=== PATIENT | female | born 1995 | race Two or more races ===

== ENCOUNTER 2024-07-12 06:04 | Emergency (ER) | payer MEDICAID, SELFPAY ==
[2024-07-12 06:05] VITALS: BP 126/87; PULSE 110; RESP 20; TEMP 36.9; O2SAT 98
--- NOTE | 2024-07-12 06:26 | XR_ITS ---
Examination: CT abdomen and pelvis without contrast. Coronal 3-D reconstructions. Sagittal 2-D reconstructions. Date and time of exam:July 12, 2024 0805 hours INDICATIONS: Onset bilateral flank pain today COMPARISON: 05/05/2023 CTDI: vol (mGy): 10.2 DLP: (mGycm): 553 Technique: Axial images of the abdomen have been obtained, 3 mm slice thickness Intravenous contrast material has not been administered. Low dose protocols were performed. One or more of the following dose reduction techniques were used; automated exposure control, adjustment of the mA and/or KV according to patient size, use of iterative reconstruction technique. Findings: Diffuse fatty infiltration throughout the liver no focal liver lesions Absent gallbladder No pancreatic mass No renal or ureteral calculi, no hydronephrosis Aorta normal size No bowel obstruction Normal appendix No diverticulitis Partially retroverted uterus No definite adnexal mass Contracted urinary bladder with wall thickening up to 4 mm IMPRESSION: No renal or ureteral calculi, no hydronephrosis Normal appendix Cystitis pattern
[2024-07-12 06:41] LABS: Collection Type, Urine Clean Catch
[2024-07-12 06:44] LABS: Basophils % (Auto) 0 % (0-2.5); Eosinophils # (Auto) 0.1 Thou/mm3 (0.0-0.5); Eosinophils % (Auto) 1 % (0-10); Hematocrit 41.9 % (36.0-46.0); Hemoglobin 14.2 g/dL (12.0-16.0); Immature Granulocytes % (Auto) 0 % (0-0); Immature Granulocytes Auto 0.02 Thou/mm3 (0.00-0.00); Lymphocytes # (Auto) 1.6 Thou/mm3 (1.0-4.8); Lymphocytes % (Auto) 16 % (10-50); Mean Corpuscular HGB Conc 33.9 g/dl (31.0-37.0); Mean Corpuscular Hemoglobin 29.3 pg (25.0-35.0); Mean Corpuscular Volume 86 fL (80-100); Monocytes # (Auto) 0.7 Thou/mm3 (0.0-0.8); Monocytes % (Auto) 8 % (0-12); Neutrophils # (Auto) 7.5 Thou/mm3 (1.8-7.7); Neutrophils % (Auto) 76 % (37-80); Nucleated Red Blood Cell % 0 /100 WBC (0); Platelet Count 241 Thou/mm3 (140-440); RDW Standard Deviation 40.5 fL (36.4-46.3); Red Blood Count 4.85 Miln/mm3 (4.00-5.20); White Blood Count 9.9 Thou/mm3 (3.6-11.0)
[2024-07-12 06:48] LABS: Bilirubin,Urine Negative (Negative); Blood,Urine 2+ (Negative); Clarity,Urine Clear (Clear/Hazy); Color,Urine Yellow (Lt Yel-Yel); Culture Indicated,Urine Not Indicated; Glucose, Urine Negative (Negative); Ketones,Urine Negative (Negative); Leukocyte Esterase,Urine Positive (Negative); Nitrite,Urine Negative (Negative); PH,Urine 6.5 (5.0-7.0); Protein,Urine Trace (Neg - Trace); RBC,Urine 5 /hpf (0-3); Specific Gravity,Urine 1.025 (1.001-1.035); Squamous Epithelial Cell,Urine 6 /hpf (0-5); Urobilinogen,Urine Negative mg/dL (0.0-1.0); WBC,Urine 5 /hpf (0-5)
[2024-07-12 06:54] LABS: HCG Qualitative,Urine Negative
[2024-07-12 07:01] LABS: Alanine Aminotransferase 37 U/L (10-49); Albumin, Serum 5.5 gm/dL (3.5-5.0); Albumin/Globulin Ratio 1.8 (1.2-2.2); Alkaline Phosphatase 92 U/L (46-116); Anion Gap 9 (7-16); Aspartate Amino Transferase 25 U/L (0-34); BUN/Creatinine Ratio 13 Ratio (12-20); Bilirubin,Total 0.9 mg/dL (0.3-1.2); Blood Urea Nitrogen 9 mg/dL (9-23); Carbon Dioxide 23.8 mMol/L (20.0-31.0); Chloride 103 mMol/L (98-107); Creatinine (Component) 0.7 mg/dL (0.6-1.3); Glucose 94 mg/dL (74-106); Lipase 28 U/L (12-53); Osmolality,Calculated 270 (275-295); Sodium 136 mMol/L (136-145); Total Protein 8.5 gm/dL (5.7-8.2); eGFR > 60 See Note
--- NOTE | 2024-07-12 11:05 | PD.EDABDPN ---
ED Abdominal Pain RME/HPI General Chief Complaint: Abdominal Pain Stated complaint: Abdominal Painx 4 days Time seen by provider: 07/12/24 06:21 Arrival date/time: 07/12/24 06:04 28 female presents to the emergency department today complaints of left lower abdominal pain and rectal pain patient report symptoms ongoing for the last 4 days patient reports no fever or vomiting Limitations: no limitations Related Data Previous Rx's ?Medication ?Instructions ?Recorded ibuprofen 600 mg tablet 600 mg PO Q6H #30 tabs 07/12/24 metoclopramide HCl 10 mg tablet 10 mg PO Q6H PRN nausea and 07/12/24 (Reglan) vomiting #30 tabs Allergies Allergy/AdvReac Type Severity Reaction Status Date / Time morphine Allergy Mild Rash Verified 05/05/23 19:04 Review of Systems Review of Systems Systems Reviewed: All systems reviewed, normal except as documented Constitutional Constitutional: Reports system reviewed and no additional complaints, except as documented, Denies fever(s) and Denies headache(s) Eyes Eyes: Reports system reviewed and no additional complaints, except as documented and Denies blurry vision ENT Ears, Nose, Mouth, and Throat: Reports system reviewed and no additional complaints, except as documented, Denies headache(s), Denies nasal congestion and Denies nasal discharge Cardiovascular Cardiovascular: Reports system reviewed and no additional complaints, except as documented, Denies chest pain and Denies dyspnea Respiratory Respiratory: Reports system reviewed and no additional complaints, except as documented, Denies chest congestion, Denies cough and Denies dyspnea Gastrointestinal Gastrointestinal: Reports system reviewed and no additional complaints, except as documented, Reports abdominal pain, Denies loose stools, Denies melena and Denies vomiting Integumentary/Breasts Skin/Breast: Reports system reviewed and no additional complaints, except as documented and Denies rash Neurologic Neurologic: Reports system reviewed and no additional complaints, except as documented, Reports as per HPI and Denies headache(s) ED Exam General Limitations: Present no limitations General appearance: Present alert and in no apparent distress Head Head exam: Present atraumatic Eye Eye exam: Present normal appearance, PERRL and EOMI ENT ENT exam: Present normal exam, normal oropharynx and mucous membranes moist Neck Neck exam: Present normal inspection, full ROM and trachea midline Chest Chest inspection: Present normal inspection and symmetric chest wall rise Respiratory Respiratory exam: Present normal lung sounds bilaterally; Absent respiratory distress Cardiovascular Cardiovascular exam: Present regular rate, normal rhythm and normal heart sounds Abdominal Exam Abdominal exam: Present soft and normal bowel sounds; Absent distention, tenderness, guarding, rebound or rigidity Extremities Exam Extremities exam: Present normal inspection and full ROM Back Exam Back exam: Present normal inspection and full ROM Neurological Exam Neurological exam: Present alert, oriented X3 and CN II-XII intact Psychiatric Psychiatric exam: Present normal affect and normal mood Skin Skin exam: Present warm, dry, intact and normal color Course Quality Measures none Orders Category Date Time Status CT abdomen pelvis wo con Stat Exams 07/12/24 06:26 Completed CBC Stat Lab 07/12/24 06:36 Completed Comprehensive Metabolic Panel Stat Lab 07/12/24 06:36 Completed HCG Qualitative,Urine Stat Lab 07/12/24 06:33 Completed Lipase Stat Lab 07/12/24 06:36 Completed UA, C/S IF [Urinalysis, C/S if Indicated] Stat Lab 07/12/24 06:33 Completed Vital Signs Vital signs: Vital Signs Temperature 98.4 F 07/12/24 06:05 Pulse Rate 110 H 07/12/24 06:05 Respiratory Rate 20 07/12/24 06:05 Blood Pressure 126/87 H 07/12/24 06:05 Pulse Oximetry (%) 98 07/12/24 06:05 Oxygen Delivery Method Room Air 07/12/24 06:05 O2 saturation 98% room air within normal limits Abdominal Pain MDM MDM Narrative MDM Narrative:: 28 female presents to the emergency department today complaints of left lower abdominal pain and rectal pain patient report symptoms ongoing for the last 4 days patient reports no fever or vomiting On exam patient does not appear ill or toxic patient not appear in acute distress Patient well-appearing Patient reports no dysuria no pelvic pain no vaginal discharge Lab work as well as CT scan obtained No acute emergent findings noted Patient discharged home in no distress to follow-up with primary care doctor in the next 24 to 48 hours and for any worsening symptoms to return to the ER immediately Patient data External records reviewed:: [facility] previous records Clinical information provided by:: patient Social determinants that could affect healthcare access:: none Patient has the following chronic illnesses:: None How is presenting disease/condition affected by chronic disease/condition?: no chronic disease Evaluation data The following diagnostics were reviewed and interpreted by me:: lab results and radiology exam(s) Lab and/or radiology exams considered but not ordered:: Labs and radiology obtained Interpretation Summary: Reviewed by me Medications / Prescriptions Medications or Prescriptions considered but not ordered:: Given Medication administrations:: Given Consultations Consultation(s) initiated? (list below): No Diagnosis Differential diagnosis abdominal pain: abdominal pain, acute appendicitis, calculus of kidney, diverticulitis, gastroenteritis and small bowel obstruction Most likely diagnosis given after review of the tests above:: Abdominal pain Admission Indicated Admission indicated?: not indicated Admission Request Was there a request for admission?: No Disposition Plan Disposition Plan: Discharge Discharge Attestation Discharge Attestation: The patient and all family members were given an opportunity to ask questions and understood the discharge instructions. Discharge instructions specifically effects, indications for sooner follow up or return to the emergency department, and the expected course of current diagnosis. Patient condition: Stable Discharge Plan Plan Patient Disposition: HOME (Self Care) Disposition Comment: Stable Prescriptions/Referrals Prescriptions/Med Rec: New ibuprofen 600 mg tablet 600 mg PO Q6H Qty: 30 0RF metoclopramide HCl [Reglan] 10 mg tablet 10 mg PO Q6H PRN (Reason: nausea and vomiting) Qty: 30 0RF Referrals: Luis E Cano MD [Primary Care Provider] - 07/13/24 Problem List Clinical Impression: Abdominal pain Patient/Caregiver Discharge Instructions Education Materials: Abdominal Pain Additional Instructions: Please follow up with your primary care doctor in the next 24-48hrs for any worsening symptoms return here immediately Print Language: Spanish Stand Alone Forms: Claribel Award Info., Work/School Release, Patient Portal Info Letter PA/MASOOD Supervising Physician PA/MASOOD Supervising Physician: Dr Akers
[2024-07-12 11:15] VITALS: BP 122/82; PULSE 107; RESP 18; TEMP 36.9; O2SAT 98
== END 2024-07-12 11:15 | disposition home or self-care (01) ==
PROVIDERS: Nurse Practitioner Primary Care; Emergency Provider Emergency Medicine; PCP Family Medicine
DX: R10.32 Left lower quadrant pain (principal)
CPT/HCPCS: 36415; 74176; 80053; 81001; 81025; 83690; 85025; 99284